=== PATIENT | female | born 1950 | race Caucasian/White ===

== ENCOUNTER → 2017-09-11 16:41 | Outpatient (CLI) | payer MEDICARE, BC | END | disposition home or self-care (01) | LOC: D.LABREF 16:41 | DX: M19.011 Primary osteoarthritis, right shoulder (principal); Z11.8 Encounter for screening for other infectious and parasitic diseases ==

== ENCOUNTER → 2017-09-13 12:30 | Outpatient (CLI) | payer MEDICARE, BC | END | disposition home or self-care (01) | LOC: D.RAD 12:30 | DX: M48.062 Spinal stenosis, lumbar region with neurogenic claudication (principal) ==

== ENCOUNTER 2017-11-12 05:35 | Inpatient (IN) | payer MEDICARE, BC ==
[2017-11-09 10:45] LABS: HEMATOCRIT 39.5 % (36.0-48.0); HEMOGLOBIN 12.8 g/dL (12-16); MCHC 32.4 g/dL (31.0-37.0); MCV 92.7 fL (80.0-100.0); MEAN PLATELET VOLUME 9.6 fL (7.4-10.4); RBC 4.26 10x6/uL (4.00-5.40); RDW 14.2 % (11.5-14.5)
[~2017-11-12] VITALS: Ht 170.2 cm; Wt 75.0 kg
--- NOTE | ~2017-11-12 | OP ---
PATIENT NAME: JIA BALLARD MEDICAL RECORD: [id number] :50 LOCATION:[id number] ADMISSION DATE:11/12/17 SURGEON: TARAH HILLMAN MD DATE OF OPERATION: 11/12/2017 PREOPERATIVE DIAGNOSIS: Severe degenerative arthritis of the right shoulder. POSTOPERATIVE DIAGNOSIS: Severe degenerative arthritis of the right shoulder. PROCEDURE: Right total shoulder arthroplasty. SURGEON: Tarah Hillman MD ANESTHESIA: General. INTRAOPERATIVE COMPLICATIONS: None. SUMMARY OF PATHOLOGIC FINDINGS: Extensive osteoarthrosis of the glenohumeral joint on the right side consistent with the preoperative diagnosis and radiographs and physical exam. IMPLANTS USED: 1. [employer] VaultLock glenoid size small. 2. [employer] 2 humeral heads 44-7. 3. [employer] Ever[place] humeral stem, size 7, glenoid cemented. OPERATIVE SUMMARY IN DETAIL: After obtaining the appropriate preoperative orthopedic surgery consent as well as anesthetic consultation, evaluation and clearance, the patient was brought to the operating room and placed on the operating table in supine position. After general laryngeal mask airway was administered, the patient was placed in the beach chair position. All pressure points were well padded. She was held firmly to the operating table using vacuum pack suction system. Right upper extremity and shoulder were then prepped and draped in routine sterile fashion. The arm was held in the Trimano arm holding device. Deltopectoral incision was created, taken down the cephalic vein, which was protected throughout the case. Clavipectoral fascia was incised. A brown retractor was used to retract the deltoid and the PCL retractor was used to gently retract the conjoint tendon medially. Pectoralis was taken down from the lesser tuberosity in a feel approach and the biceps was tenotomized for later tenodesis. The humeral head was then dislocated through the wound. Osteophytes were rongeured. Proximal humeral head cut was made using the humeral head cutting guide. Serial and sequential reaming and broaching were done for a size 7 Everton Univers stem. Trial was put into place with the cut cover and the glenoid was exposed. Circumferential labrectomy was followed by center pin placement using the center pin placement guide, center low that is. This was then followed by reaming. The patient was definitely between a size medium and small; however, when the size medium was placed up there, the inferior fin was a little low for good purchase, so decision was made to carry out with small. Final glenoid preparations were made. This was then copiously irrigated. The glenoid was cemented into place, held in place while the cement was allowed to harden. All excess cement was removed prior to cement hardening. Having completed this, the humeral head was gently dislocated back out into the wound and then the trial was taken out. Size 7 Univers Ever[place] II stem was put into place, inferior and superior locks were engaged. This was excellent flush fit across the humeral head surface, 44 x 17 was then put into OPERATIVE REPORT [id number] JIA BALLARD W place, turned out to have the most appropriate superior medial and inferior medial coverage. It was a very well fitted head with excellent coverage and plenty of room for the rotator cuff to clear. At this point, the subscapularis was then reapproximated to the lesser tuberosity transosseously using #2 Ethibond. The biceps tendon was tenodesed in this closure. Wound was then copiously irrigated. Small vessel leaking from the cephalic vein was ligated with a Hemoclip. Wound was again irrigated and closed with #1 Vicryl, followed by 2-0 Vicryl and skin chace. Sterile dressings were applied. The patient was awakened, taken to the recovery room in stable condition. All final needle and sponge counts were correct. TRANSINT:[id number] Voice Confirmation ID: [id number] DOCUMENT ID: [id number] KADY TYLER, TARAH MORALES at 1826 CC: [id number] DICTATION DATE: 11/12/17901 CONDENSER CLEANER: 11/12/17 1207 ADM IN [facility] [address] [place] [address]
[~2017-11-12 05:35] MED LIST: METOPROLOL TART50 MG PO; NEURONTIN600 MG PO; NORCO 7.5/325 T1 TA1 PO; NUPRIN200 MG PO; ULTRAM50 MG PO; ZOCOR20 MG PO; ZOLOFT100 MG PO
[2017-11-12 06:39] VITALS: BP 146/83; BMI 129.1
[2017-11-12 06:51] LABS: APTT 23.7 SECONDS (22.8-39.4); INR 0.99 (0.85-1.17); PROTIME 12.7 SECONDS (11.6-15.0)
[2017-11-12 07:18] LABS: APPEARANCE SLT CLOUDY (CLEAR); BACTERIA MANY /hpf (NONE SEEN); BILIRUBIN NEGATIVE (NEGATIVE); COLOR YELLOW (YELLOW); EPITHELIAL CELLS 0-5 /hpf (0-5); GLUCOSE NEGATIVE (NEGATIVE); KETONE NEGATIVE (NEGATIVE); MUCUS >1+ /lpf (NONE SEEN); NITRITE POSITIVE (NEGATIVE); PROTEIN NEGATIVE (NEGATIVE); RED CELLS - URINE RARE /hpf (0-5); UROBILINOGEN NORMAL (NORMAL)
[2017-11-12 13:09] VITALS: BP 123/76
[2017-11-12 13:25] VITALS: BP 117/76; Ht 170.2 cm; Wt 75.0 kg
[2017-11-12 16:01] VITALS: BP 108/68
[2017-11-12 20:37] VITALS: BP 99/58
[2017-11-13 00:41] VITALS: BP 96/51
[2017-11-13 04:34] VITALS: BP 106/59
[2017-11-13 06:33] LABS: HEMATOCRIT 34.5 % (36.0-48.0); HEMOGLOBIN 11.3 g/dL (12-16); MCH 29.9 pg (26.0-34.0); MCHC 32.8 g/dL (31.0-37.0); MCV 91.3 fL (80.0-100.0); MEAN PLATELET VOLUME 9.9 fL (7.4-10.4); RBC 3.78 10x6/uL (4.00-5.40); RDW 14.4 % (11.5-14.5); WBC 8.5 10x3/uL (4.8-10.8)
[2017-11-13 08:08] VITALS: BP 141/69
[2017-11-13 11:49] VITALS: BP 114/61
[2017-11-13 15:15] VITALS: BP 109/65
[2017-11-13 23:12] VITALS: BP 129/60
[2017-11-14 05:25] LABS: HEMATOCRIT 32.3 % (36.0-48.0); HEMOGLOBIN 10.6 g/dL (12-16); MCH 29.9 pg (26.0-34.0); MCHC 32.8 g/dL (31.0-37.0); MEAN PLATELET VOLUME 9.8 fL (7.4-10.4); RBC 3.55 10x6/uL (4.00-5.40); RDW 14.3 % (11.5-14.5)
[2017-11-14 05:28] LABS: WBC 5.8 10x3/uL (4.8-10.8)
[2017-11-14 05:44] VITALS: BP 140/74
[2017-11-14 07:46] VITALS: BP 139/72
[2017-11-14] MEDS ORDERED: DILAUDID4 MG PO (07:55)
== END 2017-11-14 09:45 | disposition home or self-care (01) | DRG 483 ==
LOC: D.SDCHOLD 05:35 → D.MS 13:08
PROVIDERS: Anesthesiology; Orthopaedic Surgery
PROC: 0RRJ0JZ Replacement of Right Shoulder Joint with Synthetic Substitute, Open Approach (ICD-10-PCS; principal; 2017-11-12 07:30)
DX: M19.011 Primary osteoarthritis, right shoulder (principal); I10 Essential (primary) hypertension; M25.711 Osteophyte, right shoulder